=== PATIENT | female | born 1985 | race Caucasian/White ===

== ENCOUNTER 2016-04-12 05:55 | Day surgery (SDC) | payer MEDICAID ==
[~2016-04-12] VITALS: Ht 160 cm; Wt 70.9 kg
[2016-04-12] VITALS (11 sets, daily range): BP systolic 114–138; BP diastolic 68–96; PULSE 70–110; RESP 1–22; O2SAT 98–100
[~2016-04-12 05:55] MED LIST: IBUP-1827 PO
[2016-04-12] MEDS ORDERED: fentaNYL-PF 50 mCg/mL 2 mL Inj ONE (05:56)
[2016-04-12] MEDS ORDERED: Ketamine 10 mg/mL 20 mL Inj ONE (05:56)
[2016-04-12] MEDS ORDERED: Neostigmine 1 mg/mL 5 mL Inj ONE (05:56)
[2016-04-12] MEDS ORDERED: Rocuronium 10 mg/mL 5 mL Inj ONE (05:56)
[2016-04-12] MEDS ORDERED: Glycopyrrolate 0.2 mg/mL 5 mL Inj ONE (05:56)
[2016-04-12] MEDS ORDERED: Lidocaine PF 1% 30 mL Inj ONE (05:56)
[2016-04-12] MEDS ORDERED: Propofol 10,000 mCg/mL 20 mL Inj ONE (05:56)
[2016-04-12] MEDS ORDERED: Dexamethasone 4 mg/mL Inj ONE (05:56)
[2016-04-12] MEDS ORDERED: Ondansetron 2 mg/mL 2 mL Inj ONE (05:56)
[2016-04-12] MEDS: Lactated Ringer's 1,000 ML IV SCH ×2 (06:15→07:32)
[2016-04-12] MEDS ORDERED: Bupivacaine-MPF 0.5% W/EPI 30 mL Inj INFILTRATE ONE (07:32)
--- NOTE | 2016-04-12 07:33 | PCM.HPANE ---
Patient Data Surgeon Admitting Provider: Attending Provider:Makayla Joe MD Primary Care Physician:Connor Other Provider:Burke Mckeon Anesthesia Reason for Visit Desired Steralization Ht/WT & BMI Height (Feet): 5 Height (Inches): 3 Weight (Kilograms): 70.9 Body Mass Index 27.00 Allergies Coded Allergies: No Known Allergies (Unverified , 04/07/16) Past Anesthesia History Anesthesia History: Denies:: Abnormal Airway, Anesthesia Reactions (no prior surgery), Difficult Intubation, Fam Anesthesia Reaction Diabetes History Hx Diabetes?: No MRSA MRSA: No Medications Hypertension Medication: No Home Meds Incl Beta Grant: No Reported Medications Ibuprofen 600 Mg [id number] Mg PO TID PRN For Pain Ref 0 04/07/16 History HEENT History: Positive for:: Sinus Problem (seasonal allergies) Denies:: Abnormal Airway Cataracts Difficult Intubation Dysphagia Glaucoma Hearing Problem TMJ Hx of Heart Problems?: No Cardiovascular History: Denies:: AICD Abdominal Aortic Aneurism Atrial Fibrillation Cardiac Surgery Edema Heart Murmur Hypertension Irregular Heartbeat Pacemaker Peripheral Vascular Hx of Respiratory Problem?: No Respiratory History: Denies:: Asthma COPD Emphysema Oxygen Administration Pneumonia Tuberculosis Use of C-PAP Machine Use of Inhalers / NEBS Hx Neurologic Problems?: No Neurological History: Denies:: CVA Dementia Dizziness Headaches Multiple Sclerosis Parkinson's Disease Seizures TIA Hx of GI Problems?: No Gastrointestinal History: Denies:: Cirrhosis Gall Bladder Disease Gastroesphageal Reflux Gastrointestinal Bleeding Heartburn (only during ) Hepatitis Hiatal Hernia Liver Disease Rectal Bleeding Hx of Problems?: No Genitourinary History: Denies:: Kidney Stones Urinary Tract Infection Female Hx: Denies:: Currently Problems with Breasts? Skin History: Denies:: History Skin Disorders? (ankle scratch) Pressure Ulcers Hx Musculoskeletal Problems?: Yes Musculoskeletal History: Positive for:: Osteoarthritis (knees, hips, shoulders ) Denies:: Back Injury Fibromyalgia Joint Replacement Musculoskeletal Trauma Myasthenia Gravis Rheumatoid Arthritis Systemic Lupus Hx of Psycho/Social Problems?: Yes Psycho Social History: Positive for:: Anxiety (on no meds ) Hx Depression Hx Surgeries?: No Hx Any Other Health Problems?: No Other History: Denies:: Cancer Thyroid Disease History Blood Transfusions: Positive for:: Accept Blood Products? Denies:: Blood Transfusions Hx Diabetes: No Hx Alcohol Use: NoHx Substance Use: No Smoking Status: Current Every Day Smoker Have You Smoked inLast 12 mo: Yes Stop/Bang S-Snoring: Do You Snore Loudly: No T-Tired: feel tired, fatigued: No O-Obsered: Observed not breath: No P-Blood Pressure: treated: No B- Body Mass Index > 35 kg/m2: No A- Age over 50: No N- Neck Large Circumference: No G- Gender Male: No RICK Total Score: 0 RICK Risk Assessment: Low Risk, <3 Yes Risk Assessment Category Category 1A: Patient has history of documented sleep apnea, and HAS NOT received any narcotic, sedative or anesthesia administration during this stay. Category 1B: Patient has history of documented sleep apnea, and HAS received any narcotic , sedative or anesthesia administration during this stay Category 2: Patient has SUSPECTED Obstructive Sleep Apnea, and HAS received any narcotic , sedative or anesthesia administration during this stay. Category 3: Patient has SUSPECTED Obstructive Sleep Apnea and HAS NOT received narcotic, sedative or anesthesia administration during this stay. Category 4: Outpatient in Procedural Areas with known sleep apnea or who screen positive for High Risk via the STOP/BANG questionnaire. Exam Exam Vital Signs Vital Signs Date Time Temp Pulse Resp B/P Pulse Ox O2 Delivery O2 Flow Rate FiO2 04/12/16 06:16 36.4 85 16 127/69 99 Room Air General Appearance: Alert, Oriented X3, Cooperative HEENT/AIRWAY: MP 2 Lungs: Clear to Auscultation Heart: Exam Unremarkable Meds/Labs/Diagnostics Admission Meds Current Medications Lactated Ringer's (Lr) 1,000 ml @ 120 mls/hr [id number] IV Last administered on t 06:15; Start 04/12/16 at 05:00; Stop 04/12/16 at 13:19 Plan Impression Patient chart reviewed, patient interviewed and anesthestic plan with risks, benefits, and alternatives discussed, and informed consent obtained. NPO Status: 2/6 ASA Physical Status: ASA1 Normal Healthy Anesthetic Plan: GA Bene/Risks/Altern/Consents: Yes HP Complete Prior to Induction: Yes Aidan Jama MD Apr 12, 2016 07:33
[2016-04-12] MEDS ORDERED: Lactated Ringer's 500 ML IV PRN (07:46)
[2016-04-12] MEDS ORDERED: Lactated Ringer's 1,000 ML IV SCH (07:46)
[2016-04-12] MEDS ORDERED: Ondansetron 2 mg/mL 2 mL Inj IVPUSH PRN ×2 (07:50→08:55)
[2016-04-12] MEDS ORDERED: fentaNYL-PF 50 mCg/mL 2 mL Inj IVPUSH PRN (07:50)
[2016-04-12] MEDS ORDERED: MetoCLOpramide 5 mg/mL 2 mL Inj IVPUSH PRN ×2 (07:50→08:55)
[2016-04-12] MEDS ORDERED: Dexamethasone 4 mg/mL Inj IVPUSH PRN (07:50)
[2016-04-12] MEDS ORDERED: Phenylephrine 10,000 mCg/mL Inj IVPUSH PRN (07:50)
[2016-04-12] MEDS ORDERED: EPHEDrine Sulfate 50 mg/mL Inj IVPUSH PRN (07:50)
--- NOTE | 2016-04-12 08:59 | PCM.DIGYN ---
Surgical Discharge Instruction Dates of Hospitalization Date of Hospital Admission Providers Admitting Physician: Primary Care Physician: Connor Attending Physician: Makayla Joe MD Diagnosis at Time of Discharge Diagnosis at time of discharge desire permanent sterilization Post-operative diagnosis desire permanent sterilization Problems: Diet Discharge Diet: No restrictions Activity Discharge Activity-General: Try not to overdue, Be up and about, Balance rest and activity Dressing and Incisional Care Hygiene: May shower, NO bathtub, hot tub or whirlpool Additional Instructions Discharge Instructions Please call office if heavy vaginal bleeding, severe absominal pain, foul smelling discharge, fever more than 100.4 Follow Up Plan Follow Up Plan 2 weeks after prosedure Follow-up Provider (F9): Makayla Joe MD Follow-up appointment: Weeks (2) Call your provider for: Fever, Chills, Shortness of breath, Vomitting, Drainage at incision, Heavy vaginal bleeding, Wound redness, Increasing pain Makayla Joe MD Apr 12, 2016 08:59
[2016-04-12] MEDS ORDERED: Lactated Ringer's 1,000 ML IV ONE ×2 (09:08)
--- NOTE | 2016-04-12 09:17 | PCM.ANEP1 ---
Post Anesthesia Phase 1 PACU Phase 1 Assessment Vital Signs Vital Signs Date Time Temp Pulse Resp B/P Pulse Ox O2 Delivery O2 Flow Rate FiO2 04/12/16 09:05 93 22 122/68 100 Room Air 04/12/16 09:00 94 19 122/71 98 Room Air 04/12/16 08:55 36.1 95 19 117/69 98 Room Air 04/12/16 06:16 36.4 85 16 127/69 99 Room Air Anesthetic Administered: GA Level of Alertness: Awake, talking Pain: No Nausea or Vomiting: No Oxygen Delivery: Room Air Lungs: Clear to Auscultation Aidan Jama MD Apr 12, 2016 09:17
--- NOTE | 2016-04-12 09:18 | PCM.ANEP2 ---
Post Anesthesia Evaluation ASA/CMS Post Anesthesia VS in Patient's Normal Range?: Yes Resp Stable; Airway Patent?: Yes CV Function & Hydration Stable: Yes Mental Status Recovered?: Yes Pain control Satisfactory?: Yes N/V Control Satisfactory?: Yes Aidan Jama MD Apr 12, 2016 09:18
--- NOTE | 2016-04-12 09:45 | OP ---
[address] [address] OPERATIVE REPORT PATIENT: MARISA ARGUETA : 1985 MR#: [id number] ADMIT: 04/12/2016 JOB ID: [id number] DATE OF SURGERY: 04/12/2016 SURGEON: Makayla Joe MD. INDICATIONS: This is a 30-year-old female, para 2. She came today for scheduled laparoscopic BTL and IUD removal. She has had IUD for control for about two years, doing well, but she strongly desired permanent sterilization method. Informed consent signed. Patient understood there is risk of infection, bleeding, injury to the organs around the uterus including but not limited to the bladder, ureters, major vessels, nerves and bowel. She also understood that this is a permanent procedure but, on the other hand, there is no control that is 100% guaranteed for protection of . PREOPERATIVE DIAGNOSIS(ES): A 30-year-old female, para 2, who strongly desire permanent sterilization. POSTOPERATIVE DIAGNOSIS(ES): A 30-year-old female, para 2, who strongly desire permanent sterilization. PROCEDURE: 1. Laparoscopic bilateral tubal ligation with Filshie clamp. 2. Intrauterine device removal. DESCRIPTION OF PROCEDURE: The patient was transferred to the operating room. After anesthesia was noted to be adequate, she was placed in dorsal distal lithotomy position. She was prepared and draped in normal sterile fashion. Speculum inserted into vagina to expose the cervix. The IUD string was noted and pulled with a ring forceps without difficulty. A single-toothed tenaculum was placed on cervix. The acPulselocker manipulator was placed in for manipulation. Then, Veress needle was inserted at her umbilical area. After confirmation of insert in the peritoneal cavity, CO2 gas inflated to form a pneumoperitoneum. At this time, the Veress needle was removed. An 11 mm incision was placed on the umbilical area. An 11 mm trocar was inserted without difficulty. At this time, the pelvis was evaluated and noticed there is a normal uterus. Bilateral adnexa including tubes and ovaries both looked normal. At this time, the applicator was placed with a Filshie clip, and the clip was placed on the left fallopian tube at the 1/3 proximal to the uterus. After the placement, the tube was checked and confirmed appropriate placement. The same procedure was done on the right fallopian tube. After the procedure, the pelvis was re-examined. No bleeding was noticed. All instruments were removed from her abdomen, and the CO2 gas was released completely. Then, 0 Vicryl was used to close the umbilical incision for the fascia and 4-0 Vicryl suture was used to close continuously for the incision. Dermabond was placed above it. The patient tolerated the procedure well. All instruments, needles, laps and gauzes counted correct twice. The EBL during procedure was 2 cc. The IV fluid given was 1 L. There were 100 cc of urine drained before the procedure.
[2016-04-12] MEDS: HYDROmorphone 1 mg/mL Inj IVPUSH PRN ×2 (09:49→10:02)
--- NOTE | 2016-04-12 09:56 | DIS ---
[address] [address] DISCHARGE SUMMARY PATIENT: MARISA ARGUETA : 1985 MR#: [id number] ADMIT: 04/12/2016 JOB ID: [id number] DIS: 04/12/2016 HOSPITAL COURSE: The patient is a 30-year-old female. She is para 2. She came in today for laparoscopy, BTL and IUD removal. The procedure was not complicated. She is doing well. She is transferred to the recovery room in a stable condition. PLAN: To discharge her home when she could void well, pain well controlled, and ambulating well. The patient is instructed that if there is heavy vaginal bleeding, severe abdominal pain, foul-smelling discharge, fever more than 100.4, she should call the office or go to the ED for evaluation. She is also instructed to have follow up appointment two weeks after the procedure for follow up. Motrin 600 mg, 30 pills prescribed, for pain management, with no refills. She can take it every 6 hours.
== END 2016-04-12 23:59 | disposition home or self-care (01) ==
LOC: SAS 05:55
PROVIDERS: ATTEND Obstetrics & Gynecology
DX: Z30.2 Encounter for sterilization (principal); Z30.432 Encounter for removal of intrauterine contraceptive device; F32.9 Major depressive disorder, single episode, unspecified; F17.210 Nicotine dependence, cigarettes, uncomplicated
CPT/HCPCS: 58301; 58671; J1100; J1170; J2175; J2250; J2405; J2710; J3010; J7120